=== PATIENT | female | born 1985 | race Two or more races ===

== ENCOUNTER 2024-04-25 13:28 | Emergency (ER) | payer OTHER ==
[~2024-04-25] VITALS: Ht 165.1 cm; Wt 95.3 kg
[~2024-04-25 13:28] MED LIST: METFORMIN HCL500 MG PO; PEPCID20 MG PO; PRENATAL TABLET1 TA1 PO; ZOFRAN4 MG PO
[2024-04-25] MEDS ORDERED: TETANUS & DIPHTHERIA TOX,ADULT 0.5 ML VIAL IM ONE (16:30)
[2024-04-25] MEDS ORDERED: CEFTRIAXONE SODIUM 1,000 MG VIAL IM ONE (16:30)
[2024-04-25] MEDS ORDERED: KETOROLAC TROMETHAMINE 60 MG VIAL IM ONE ×2 (16:30→16:54)
[2024-04-25] MEDS ORDERED: LIDOCAINE HCL 1% 10ML VIAL ONE (16:54)
[2024-04-25] MEDS ORDERED: TETANUS DIPHTHERIA TOX. ADSOR 5 ML VIAL IM ONE (16:55)
[2024-04-25] MEDS ORDERED: CEFTRIAXONE SODIUM 1,000 MG VIAL ONE (16:55)
[2024-04-25] MEDS ORDERED: CEPHALEXIN500 M1 PO (19:02)
== END 2024-04-25 19:23 ==
LOC: ER 13:29
DX: S89.81XA Other specified injuries of right lower leg, initial encounter (principal); W19.XXXA Unspecified fall, initial encounter; Y93.89 Activity, other specified; Y92.89 Other specified places as the place of occurrence of the external cause; Y99.8 Other external cause status